=== PATIENT | female | born 2000 | race American Indian/Alaskan Native ===

== ENCOUNTER 2021-08-29 11:45 | Emergency (ER) | payer OTHER ==
[2021-08-29] MEDS ORDERED: HEPARIN 10,000 UNITS/10 ML VIAL IV PRN (13:18)
[2021-08-29 13:44] VITALS: BP 122/79
[2021-08-29 14:02] LABS: Basophils # (Auto) 0.1 K/mm3 (0.0-0.1); Basophils % (Auto) 1.3 % (0.0-1.8); Eosinophils # (Auto) 0.1 K/mm3 (0.0-0.4); Eosinophils % (Auto) 0.9 % (0.0-4.3); Hematocrit 32.8 % (30.3-42.9); Hemoglobin 10.3 gm/dl (10.1-14.3); Lymphocytes # (Auto) 1.5 K/mm3 (1.2-5.4); Lymphocytes % (Auto) 26.9 % (13.4-35.0); Mean Corpuscular HGB Conc 31 % (30-34); Mean Corpuscular Volume 76 fl (79-97); Monocytes # (Auto) 0.3 K/mm3 (0.0-0.8); Monocytes % (Auto) 4.6 % (0.0-7.3); Platelet Count 323 K/mm3 (140-440); Red Blood Count 4.31 M/mm3 (3.65-5.03); Red Cell Distribution Width 17.2 % (13.2-15.2)
--- NOTE | 2021-08-29 14:09 | XRay Report ---
XR chest routine 2V INDICATION / CLINICAL INFORMATION: Dysrhythmia COMPARISON: None available. FINDINGS: SUPPORT DEVICES: None. HEART / MEDIASTINUM: No significant abnormality. LUNGS / PLEURA: Lungs are clear. Costophrenic sulci are sharp. No pneumothorax. ADDITIONAL FINDINGS: No significant additional findings. IMPRESSION: 1. No acute findings. Signer Name: Quan Parry MD Signed: 08/29/2021 2:05 PM Workstation Name: [facility]
--- NOTE | 2021-08-29 14:20 | Emergency Department Report ---
HPI - General Chief Complaint: Arrhythmia/Palpitations Time Seen by Provider: 08/29/21 14:17 - HPI HPI: Since yesterday the patient has been experiencing constant left anterior presternal nonradiating mild pressure on the chest associated with shortness of breath. She denies nausea vomiting fever chills or any other associated symptoms. Other makes it better or worse. She has taken no medicines for this. She has a history of arrhythmias but currently denies palpitations. ED Past Medical Hx - Past Medical History Additional medical history: Cardiac arrhythmia - Surgical History Past Surgical History?: No - Social History Smoking Status: Never Smoker Substance Use Type: None - Medications Home Medications: Home Medications Medication Instructions Recorded Confirmed Last Taken Type No Known Home Medications [No 08/29/21 08/29/21 Unknown History Reported Home Medications] ED Review of Systems ROS: Stated complaint: CHEST PAIN/SOB Other details as noted in HPI Comment: All other systems reviewed and negative Physical Exam - Physical Exam Vital Signs: Vital Signs 08/29/21 08/29/21 08/29/21 12:39 13:38 13:42 Temperature 98.3 F 98.6 F 98.2 F Pulse Rate 81 77 77 Respiratory 18 20 20 Rate Blood Pressure 122/79 Blood Pressure 130/76 122/75 [Right] O2 Sat by Pulse 100 100 100 Oximetry Physical Exam: Physical Exam: Constitutional: AAOX3. No acute distress. No diaphoresis. HENT: Normocephalic. Pupils equal and reactive. No throat edema or erythema. Neck: No neck rigidity or tenderness. Cardiovascular: Heart sounds: No murmur. Normal rate and regular rhythm. Pulses: Intact distal pulses. Lungs: No wheezing or rales. Chest wall: No tenderness. Abdominal: No distension. No mass/pulsatile mass. No abdominal tenderness, guarding nor rebound. Musculoskeletal: Normal range of motion. No edema, No calf TTP. Skin: Warm and dry. Neurological: Alert and oriented to person, place, and time. Psychiatric: Mood and affect normal. Normal cognition and memory. Normal judgement. ED Course Vital Signs 08/29/21 08/29/21 08/29/21 12:39 13:38 13:42 Temperature 98.3 F 98.6 F 98.2 F Pulse Rate 81 77 77 Respiratory 18 20 20 Rate Blood Pressure 122/79 Blood Pressure 130/76 122/75 [Right] O2 Sat by Pulse 100 100 100 Oximetry - Reevaluation(s) Reevaluation #1: 08/29/21 14:20 EKG done interpreted at 1305 shows a rate of 88, normal. The rhythm is sinus rhythm, normal. There are no ST or T wave abnormalities. Reevaluation #2: 08/29/21 17:20 Cardiac enzymes chest x-ray and blood work which came all within normal limits. This patient does not seem to have a cardiac related pain. She will follow up with her PCP or return if any other issues arise. ED Medical Decision Making - Lab Data Result diagrams: 08/29/21 13:25 08/29/21 16:01 Critical care attestation.: If time is entered above; I have spent that time in minutes in the direct care of this critically ill patient, excluding procedure time. ED Disposition Clinical Impression: Chest pain Disposition: 01 HOME / SELF CARE / HOMELESS Is pt being admited?: No Does the pt Need Aspirin: No Condition: Stable Instructions: Nonspecific Chest Pain, Adult Time of Disposition: 17:20 Print Language: UKRAINIAN
[2021-08-29 17:08] LABS: Alanine Aminotransferase 9 units/L (7-56); Albumin 4.2 g/dL (3.9-5); Blood Urea Nitrogen 14 mg/dL (7-17); Hemolysis Index 1
[2021-08-29 17:12] LABS: BUN/Creatinine Ratio 23
--- NOTE | 2021-09-01 19:48 | Electrocardiograph Report ---
[facility] Test Date: 2021-08-29 Test Time: 13:05:05 Pat Name: DAVID RONQUILLO Department: Room: Gender: F Spanish Instructor: CHARLOTTE : [id number] Requested By: BARBARA BOYKIN Order Number: [id number] Reading MD: Murtaza German Measurements Intervals [place] Rate: 88 P: 50 NC: 152 QRS: 57 QRSD: 87 T: 21 QT: 380 QTc: 459 Interpretive Statements Sinus rhythm No previous ECG available for comparison Electronically Signed On 09-01-2021 19:47:53 EDT by Murtaza German
== END 2021-08-29 17:22 | disposition left against medical advice (07) ==
LOC: ED 11:45
DX: R07.9 Chest pain, unspecified (principal)
CPT/HCPCS: 36415; 71046; 80053; 84484; 85025; 93005; 99284